=== PATIENT | male | born 2000 | race Caucasian/White ===

== ENCOUNTER 2022-05-07 21:11 | Emergency (ER) | payer OTHER ==
[~2022-05-07] VITALS: Ht 185.5 cm; Wt 63.5 kg
[2022-05-07 21:19] VITALS: BP 161/95
[2022-05-07] MEDS ORDERED: MELO15TA39 (21:25)
[2022-05-07] MEDS ORDERED: TRAM50TA3 (21:25)
--- NOTE | 2022-05-07 22:13 | ED Integumentary General ---
General Chief Complaint: Skin/Wound Problems Stated Complaint: HIT HEAD,PASSED OUT Nursing Triage Note: pt reports getting struck in head with lego picture frame. 2.5cm abraision to right scalp. Source: patient Exam Limitations: no limitations History of Present Illness Date Seen by Provider: May 07, 2022 Time Seen by Provider: 21:48 Initial Comments This is a well-appearing 21-year-old male who presented to the ER with complaints of a cut on the right lateral aspect of his head from a Lego picture. States that he tripped going up the stairs and fell sideways into the wall. Allergies and Home Medications Allergies Coded Allergies: No Known Drug Allergies (Unverified , 05/07/22) Patient Home Medication List Meloxicam (Meloxicam) 15 Mg Tablet, (Reported) Entered as Reported by: CHRISTO GALLO on 05/07/222124 Last Action: New Order Tramadol HCl (Tramadol HCl) 50 Mg Tablet, (Reported) Entered as Reported by: CHRISTO GALLO on 05/07/222124 Last Action: New Order Past Dyxfogp-Abywom-Ltodvk Hx Patient Social History Tobacco Use?: No Substance use?: No Alcohol Use?: No Pt feels they are or have been: No Past Medical History Surgery/Hospitalization HX: t/a, dental Physical Exam Vital Signs Vital Signs - First Documented 05/07/22 21:19 Temp 36.6 Pulse 85 Resp 16 B/P (MAP) 161/95 (117) Pulse Ox 99 O2 Delivery Room Air Capillary Refill : Less Than 3 Seconds Progress/Results/Core Measures Results/Orders Vital Signs/I&O 05/07/22 21:19 Temp 36.6 Pulse 85 Resp 16 B/P (MAP) 161/95 (117) Pulse Ox 99 O2 Delivery Room Air Blood Pressure Mean: 117 Departure Impression Primary Impression: Superficial laceration of head Additional Impressions: Fall Fainted Disposition: 01 HOME, SELF-CARE Condition: Stable Departure-Patient Inst. Decision time for Depature: 22:09 Referrals: NO,LOCAL PHYSICIAN (PCP/Family) Primary Care Physician Patient Instructions: Wound Care ED, Fainting, Adult ED Add. Discharge Instructions: Plan: 1. Follow up with primary care provider if you have any persistent symptoms. 2. Monitor for any of the red flags and return if any symptoms develop: -Have someone stay with you for the next 24 hours, make sure you awaken easily every couple hours through the night. -Change in pupil size (black part of eye) compared left to right. -Vomiting more than 3 times in 12 hours. -Headache that worsens or is the worst headache of your life. -Seizures -Slurred speech -Increasing confusion or irritability. -Unusual behavioral changes 3. Return for any new, concerning, or worsening symptoms. 4. Wash site normally with soap and water, avoid using gels, creams for a few days until site starts to heal. Monitor for signs of infection, return or follow up with PCP if symptoms develop. All discharge instructions reviewed with patient and/or family. Voiced understanding. HORACE VALENTINO [employer] CHECKOUT CLERK May 07, 2022 22:13
== END 2022-05-07 22:18 | disposition home or self-care (01) ==
LOC: ER 21:17
DX: S01.01XA Laceration without foreign body of scalp, initial encounter (principal); R55 Syncope and collapse; W01.198A Fall on same level from slipping, tripping and stumbling with subsequent striking against other object, initial encounter; Y92.008 Other place in unspecified non-institutional (private) residence as the place of occurrence of the external cause
CPT/HCPCS: 99281

== ENCOUNTER 2023-03-01 21:24 | Emergency (ER) | payer BC, OTHER ==
[~2023-03-01] VITALS: Ht 185.5 cm; Wt 63.5 kg
[~2023-03-01 21:24] MED LIST: MELO15TA39; TRAM50TA3
[2023-03-01] MEDS ORDERED: ONDANSETRON 4 MG/2 ML (SDV) Z0FRAN IM ONE (21:45)
--- NOTE | 2023-03-01 21:45 | ED General ---
General Stated Complaint: N/V- DIARRHEA Source of Information: Patient Exam Limitations: No Limitations History of Present Illness Date Seen by Provider: March 01, 2023 Time Seen by Provider: 21:33 Initial Comments 22-year-old male presents to the emergency department today for diarrhea, feeling as though he may be dehydrated. He is also feeling nauseous. He states he was constipated recently and took Dulcolax today at his mother's suggestion. He has had 1 large loose bowel movement in several small loose bowel movements since that time. He is also feeling sniffily nauseated. He has not vomited. No fevers or chills. Has diffuse abdominal cramping without any focal tenderness. He states his concern this evening is that his stools have become very watery and yellowish. All other systems reviewed and negative except documented per HPI. Voice recognition software was used to help create this chart Allergies and Home Medications Allergies Coded Allergies: No Known Drug Allergies (Unverified , 05/07/22) Patient Home Medication List Home Medication List Reviewed: Yes Meloxicam (Meloxicam) 15 Mg Tablet, (Reported) Entered as Reported by: CHRISTO GALLO on 05/07/222124 Tramadol HCl (Tramadol HCl) 50 Mg Tablet, (Reported) Entered as Reported by: CHRISTO GALLO on 05/07/222124 Review of Systems Review of Systems Constitutional: see HPI Past Ianbgld-Rkvega-Nxanhp Hx Patient Social History Tobacco Use?: No Use of E-Cig and/or Vaping dev: No Substance use?: No Alcohol Use?: No Past Medical History Surgery/Hospitalization HX: t/a, dental Physical Exam Vital Signs Vital Signs - First Documented 03/01/23 21:32 Temp 35.9 Pulse 95 Resp 18 B/P (MAP) 150/113 (125) Pulse Ox 100 O2 Delivery Room Air Capillary Refill : Height, Weight, BMI Height: '" Weight: lbs. oz. kg; 18.00 BMI Method: General Appearance: No Apparent Distress, WD/WN HEENT: Normal ENT Inspection, Pharynx Normal Neck: Normal Inspection, Non Tender, Supple Respiratory: Chest Non Tender, Lungs Clear, Normal Breath Sounds, No Accessory Muscle Use, No Respiratory Distress Cardiovascular: Regular Rate, Rhythm, Normal Peripheral Pulses Gastrointestinal: No Organomegaly, No Pulsatile Mass, Non Tender, Soft, Other (Hyperactive bowel sounds) Neurologic/Psychiatric: Alert, Oriented x3, Normal Mood/Affect Skin: Normal Color, Warm/Dry Progress/Results/Core Measures Suspected Sepsis SIRS Temperature: Pulse: Respiratory Rate: Blood Pressure / Mean: Laboratory Tests 03/01/23 21:55: Creatinine 0.88 Results/Orders Lab Results Laboratory Tests Test 03/01/23 21:55 Range/Units Sodium Level 139 135-145 MMOL/L Potassium Level 3.6 3.6-5.0 MMOL/L Chloride Level 106 98-107 MMOL/L Carbon Dioxide Level 21 21-32 MMOL/L Anion Gap 12 5-14 MMOL/L Blood Urea Nitrogen 7 7-18 MG/DL Creatinine 0.88 0.60-1.30 MG/DL Estimat Glomerular Filtration Rate 126 BUN/Creatinine Ratio 8 Glucose Level 109 H 70-105 MG/DL Calcium Level 9.8 8.5-10.1 MG/DL My Orders Orders - MARIELLA BOYD DO Basic Metabolic Panel (03/01/23 21:42) Ondansetron Injection (Zofran Injectio (03/01/23 21:45) Medications Given in ED Current Medications Medications Dose Ordered Sig/Dedra Route Start Time Stop Time Status Last Admin Dose Admin Ondansetron HCl 8 mg ONCE ONCE IM 03/01/23 21:45 03/01/23 21:46 DC 03/01/23 21:50 8 MG Vital Signs/I&O 03/01/23 21:32 Temp 35.9 Pulse 95 Resp 18 B/P (MAP) 150/113 (125) Pulse Ox 100 O2 Delivery Room Air Capillary Refill : Departure Communication (Admissions) Patient is hemodynamically stable. Nontoxic. Tolerating p.o. No indication for IV fluids at this time. Electrolytes are normal. Abdomen is related to Dulcolax use. Discharged in stable condition with supportive care. Impression Primary Impression: Loose stools Additional Impression: Nausea alone Disposition: 01 HOME, SELF-CARE Condition: Stable Departure-Patient Inst. Referrals: OLIVIA SHUKLA MD (PCP/Family) Primary Care Physician Patient Instructions: Nausea and Vomiting, Adult (DC), Diarrhea in Adolescents and Adults Add. Discharge Instructions: Use zofran as needed for nausea. increase your fluids and rest. Return to the ER for severe concerns. Scripts Ondansetron (Ondansetron Odt) 8 Mg Tab.rapdis 8 MG SL Q6H PRN for NAUSEA/VOMITING for 3 Days, #12 TAB Prov: MARIELLA BOYD DO 03/01/23 MARIELLA BOYD DO March 01, 2023 21:45
[2023-03-01 22:14] LABS: POTASSIUM 3.6 MMOL/L (3.6-5.0)
[2023-03-01 22:15] LABS: CALCIUM 9.8 MG/DL (8.5-10.1)
[2023-03-01 22:20] LABS: CREATININE SERUM 0.88 MG/DL (0.60-1.30)
[2023-03-01] MEDS ORDERED: ONDA8TAB13 SL (22:30)
[2023-03-01 22:57] VITALS: BP 146/92
== END 2023-03-01 22:57 | disposition home or self-care (01) ==
LOC: EDUNIT# 21:24 → ER 21:25
DX: R19.7 Diarrhea, unspecified (principal); R11.0 Nausea; Z28.310 Unvaccinated for COVID-19
CPT/HCPCS: 36415; 80048